=== PATIENT | male | born 1940 | race Asian ===

== ENCOUNTER 2022-09-14 23:41 | Emergency (ER) | payer OTHER ==
[2022-09-14] MEDS ORDERED: INDOMETHACIN 50 MG CAPSULE PO ONE (23:49)
[2022-09-14 23:58] VITALS: BP 169/90; PULSE 73; RESP 16; TEMP 98.3; BMI 22.1
[2022-09-15] MEDS ORDERED: INDOMETHACIN 25 MG CAPSULE ONE (00:27)
== END 2022-09-15 01:41 | disposition home or self-care (01) ==
LOC: FER 23:41
DX: M25.562 Pain in left knee (principal); R22.42 Localized swelling, mass and lump, left lower limb; M13.862 Other specified arthritis, left knee; M71.22 Synovial cyst of popliteal space [Baker], left knee
CPT/HCPCS: 73560-TC-LT-FY; 93971-TC; 99284-25

== ENCOUNTER 2022-09-28 14:53 | Emergency (ER) | payer OTHER ==
[2022-09-28 15:15] VITALS: BP 152/60; PULSE 72; RESP 20; TEMP 98.2; BMI 21.4
[2022-09-28] MEDS ORDERED: ACETAMINOPHEN 325 MG TABLET (FP) PO ONE (15:19)
[2022-09-28] MEDS ORDERED: ACETAMINOPHEN 325 MG TABLET (FP) ONE (15:34)
[2022-09-28 16:41] LABS: HEMATOCRIT 37.9 % (35.4-49); HEMOGLOBIN 12.9 G/dL (11.7-16.9); MCH 31.8 pg (25.7-33.7); MCHC 34.1 g/dl (32.0-35.9); MEAN CELL VOLUME 93.4 fl (80-96); MEAN PLT VOLUME 7.7 fl (7.5-11.1); PLATELET COUNT 265.7 10^3/uL (134-434); RBC 4.06 10^6/uL (4.00-5.60); RDW 14.9 % (11.9-15.9); WHITE BLOOD COUNT 6.9 10^3/uL (4.0-10.8)
[2022-09-28 16:56] LABS: ALBUMIN 3.9 g/dl (3.4-5.0); BILIRUBIN,TOTAL 0.9 mg/dl (0.2-1); CALCIUM 8.8 mg/dl (8.5-10); POTASSIUM 3.9 mmol/L (3.5-5.1); TOT PROT 6.9 g/dl (6.4-8.2)
[2022-09-28 17:15] LABS: PLATELET ESTIMATE ADEQUATE
== END 2022-09-28 17:36 | disposition home or self-care (01) ==
LOC: FER 14:53
DX: R60.0 Localized edema (principal); R42 Dizziness and giddiness
CPT/HCPCS: 36415; 70450-TC; 72131-TC; 73610-TC-LT-FY; 73630-TC-LT; 80053; 84484; 85027; 93005; 93970-TC; 99285-25